=== PATIENT | male | born 1980 | race Caucasian/White ===

== ENCOUNTER 2017-10-21 16:21 | Emergency (ER) | payer OTHER ==
[2017-10-21 16:31] VITALS: BP 146/66; PULSE 86; TEMP 98.3; BMI 22.2
--- NOTE | 2017-10-21 16:31 | PDOC ---
Rapid Medical Evaluation Chief Complaint: Back Pain Time Seen by Provider: 10/21/17 16:29 Medical Evaluation: Allergies Allergy/AdvReac Type Severity Reaction Status Date / Time No Known Allergies Allergy Verified 10/21/17 16:28 10/21/17 16:29 The patient presents with a chief complaint of: [Back pain, was at the gym, after a certain exercise had pain to the left lower back. 2 Aleve prior to arrival. ] I have performed a brief in-person evaluation of this patient. Pertinent physical exam findings: vss, [Lungs clear, RRR, No spinal point tenderness. ] I have ordered the following: [None] The patient will proceed to the [facility] for further evaluation. Discharge Disposition - Diagnosis Back pain Qualifiers: Back pain location: low back pain Chronicity: acute Back pain laterality: left Sciatica presence: without sciatica Qualified Code(s): M54.5 - Low back pain - Referrals - Patient Instructions - Post Discharge Activity
[2017-10-21] MEDS ORDERED: traMADol HCL 50 MG TABLET PO ONE (17:19)
[2017-10-21] MEDS ORDERED: CYCLOBENZAPRINE HCL 10 MG TABLET (FP) PO ONE (17:19)
[2017-10-21] MEDS ORDERED: CYCLOBENZAPRINE HCL 10 MG TABLET (FP) ONE (17:21)
[2017-10-21] MEDS ORDERED: traMADol HCL 50 MG TABLET ONE (17:21)
--- NOTE | 2017-10-21 17:27 | PDOC ---
History of Present Illness - General Chief Complaint: Back Pain Stated Complaint: BACK PAIN Time Seen by Provider: 10/21/17 16:29 History Source: Patient - History of Present Illness Occurred: reports: this afternoon Severity: reports: moderate Pain Location: reports: back Method of Injury: Yes: other Past History - Past Medical History Allergies/Adverse Reactions: Allergies Allergy/AdvReac Type Severity Reaction Status Date / Time No Known Allergies Allergy Verified 10/21/17 16:28 Home Medications: Ambulatory Orders Cyclobenzaprine HCl [Flexeril -] 10 mg PO TID #9 tablet 10/21/17 Ibuprofen [Motrin -] 800 mg PO Q6H #30 tablet 10/21/17 Tramadol HCl 50 mg PO Q6H #15 tablet MDD 200 mg 10/21/17 COPD: No - Suicide/Smoking/Psychosocial Hx Smoking History: Never smoked Have you smoked in the past 12 months: No Information on smoking cessation initiated: No Hx Alcohol Use: No Drug/Substance Use Hx: No Substance Use Type: None Review of Systems - Review of Systems Musculoskeletal: Yes: Back Pain Neurological: No: Numbness, Tingling, Weakness *Physical Exam - Vital Signs Last Vital Signs Temp Pulse Resp BP Pulse Ox 98.3 F 86 18 146/66 100 10/21/17 16:28 10/21/17 16:28 10/21/17 16:28 10/21/17 16:28 10/21/17 16:28 - Physical Exam General Appearance: Yes: Appropriately Dressed, Mild Distress HEENT: positive: Normal Voice Neck: positive: Supple Respiratory/Chest: negative: Respiratory Distress Musculoskeletal: positive: Normal Inspection. negative: CVA Tenderness, Vertebral Tenderness Extremity: positive: Normal Inspection Integumentary: positive: Dry, Warm Neurologic: positive: Fully Oriented, Normal Mood/Affect Medical Decision Making - Medical Decision Making 10/21/17 17:20 37-year-old male, denies any past medical history, here with left lower back pain that started while exercising in the gym today. States pain radiates to posterior aspect of left mid thigh. No sensory changes, lower extremity weakness, saddle anesthesia or bowel or bladder incontinence. Able to bear weight but painful. Took Aleve 2 hours ago with no relief. Patient stable in ED in mild distress with pain to left lower back upon forward bending. No red flags at this time, i.e. cauda equina. Will manage pain in ED and reassess 10/21/17 17:41 After given pain medications, patient requesting to be discharged, does not wish to wait for reassessment. Discharge with prescriptions and instructions to follow up with PMD if pain persists *DC/Admit/Observation/Transfer Diagnosis at time of Disposition: Low back pain Qualifiers: Chronicity: acute Back pain laterality: left Sciatica presence: without sciatica Qualified Code(s): M54.5 - Low back pain - Discharge Dispostion Disposition: HOME Condition at time of disposition: Improved - Prescriptions Prescriptions: Cyclobenzaprine HCl [Flexeril -] 10 mg PO TID #9 tablet Ibuprofen [Motrin -] 800 mg PO Q6H #30 tablet Tramadol HCl 50 mg PO Q6H #15 tablet MDD 200 mg - Referrals - Patient Instructions Printed Discharge Instructions: DI for Back Strain or Sprain Additional Instructions: Take medications as directed. Refrain from exercising/working out until symptoms have resolved. If pain persist, follow-up with your primary care physician - Post Discharge Activity
== END 2017-10-21 17:47 | disposition home or self-care (01) ==
LOC: JERFT 16:21
DX: M54.5 Low back pain (principal); X50.0XXA Overexertion from strenuous movement or load, initial encounter; Y93.B9 Activity, other involving muscle strengthening exercises; Y92.39 Other specified sports and athletic area as the place of occurrence of the external cause; Y99.8 Other external cause status
CPT/HCPCS: 99281-25

== ENCOUNTER 2018-08-25 10:58 | Emergency (ER) | payer OTHER ==
[2018-08-25 11:06] VITALS: BP 140/84; PULSE 81; TEMP 98.3; BMI 22.7
--- NOTE | 2018-08-25 11:56 | PDOC ---
History of Present Illness - General Chief Complaint: Wound Stated Complaint: SWOLLEN FINGER Time Seen by Provider: 08/25/18 11:36 - History of Present Illness Initial Comments: 08/25/18 11:53 38-year-old male without comorbidities presents for evaluation of a painful area on his right middle finger. He does not have systemic symptoms the painful area has been there for 3 days Past History - Past Medical History Allergies/Adverse Reactions: Allergies Allergy/AdvReac Type Severity Reaction Status Date / Time No Known Allergies Allergy Verified 08/25/18 11:02 Home Medications: Ambulatory Orders Cephalexin [Keflex] 500 mg PO QID #40 capsule 08/25/18 Sulfamethoxazole/Trimethoprim [Bactrim Ds -] 1 tab PO BID #14 tablet 08/25/18 COPD: No - Suicide/Smoking/Psychosocial Hx Smoking History: Smoker current status UNK Have you smoked in the past 12 months: No Hx Alcohol Use: No Drug/Substance Use Hx: No Substance Use Type: None Review of Systems - Review of Systems Musculoskeletal: Yes: See HPI *Physical Exam - Vital Signs Last Vital Signs Temp Pulse Resp BP Pulse Ox 98.3 F 81 16 140/84 99 08/25/18 11:04 08/25/18 11:04 08/25/18 11:04 08/25/18 11:04 08/25/18 11:04 - Physical Exam Comments: 08/25/18 11:54 Right middle finger skin color and temperature are normal there is an area of fluctuance and erythema at the proximal radial border of the nail fold with associated tenderness. There are no gross sensorimotor deficits Moderate Sedation - Procedure Monitoring Vital Signs: Procedure Monitoring Vital Signs Temperature 98.3 F 08/25/18 11:04 Pulse Rate 81 08/25/18 11:04 Respiratory Rate 16 08/25/18 11:04 Blood Pressure 140/84 08/25/18 11:04 O2 Sat by Pulse Oximetry (%) 99 08/25/18 11:04 Medical Decision Making - Medical Decision Making 08/25/18 11:54 The finger was aseptically prepped 6 mL of 1% lidocaine without epinephrine was used for digital block. After anesthesia was obtained, an 11 blade was used to make the area of fluctuance. Material was expressed and cultured. A dry sterile dressing was placed this was tolerated well. *DC/Admit/Observation/Transfer Diagnosis at time of Disposition: Acute paronychia of finger of right hand - Discharge Dispostion Disposition: HOME Condition at time of disposition: Stable Decision to Admit order: No - Prescriptions Prescriptions: Cephalexin [Keflex] 500 mg PO QID #40 capsule Sulfamethoxazole/Trimethoprim [Bactrim Ds -] 1 tab PO BID #14 tablet - Referrals Referrals: Dajuan Calabrese MD [Primary Care Provider] - Swapnil Pimentel MD [Staff Physician] - - Patient Instructions Printed Discharge Instructions: Paronychia Additional Instructions: Please take the antibiotics as directed. Return to the emergency room should symptoms worsen or go unresolved. Follow-up with hand surgery in one to 2 days for further evaluation and treatment options. He may take Tylenol and Motrin as directed for pain. - Post Discharge Activity
== END 2018-08-25 12:08 | disposition home or self-care (01) ==
LOC: JERFT 10:58
PROC: 0H9QXZZ Drainage of Finger Nail, External Approach (ICD-10-PCS; principal; 2018-08-25)
DX: L03.011 Cellulitis of right finger (principal)
CPT/HCPCS: 10060; 87070; 87186; 87205; 99281-25